=== PATIENT | female | born 1985 | race Caucasian/White ===

== ENCOUNTER → 2016-11-20 | Outpatient (CLI) | payer BC ==
[~2016-11-20] MED LIST: PRENTAB26 PO
[2016-11-20 12:23] LABS: URINE APPEARANCE CLEAR (CLEAR); URINE BILIRUBIN NEG (NEG); URINE COLOR YELLOW; URINE NITRITE NEG (NEG); URINE SPECIFIC GRAVITY 1.019 (1.000-1.030); UROBILINOGEN NEG (NEG)
[2016-11-20 12:29] LABS: MANUAL MICROSCOPIC REQUIRED? NO; REVIEW REQ? NO
== END | disposition home or self-care (01) ==
LOC: C.LABSPEC 11:39
PROVIDERS: ATTEND Obstetrics & Gynecology
DX: Z34.81 Encounter for supervision of other normal pregnancy, first trimester (principal)

== ENCOUNTER → 2016-11-21 | Outpatient (CLI) | payer BC ==
[2016-11-21 12:25] LABS: BASO % 0.5 %; BASO ABS # 0.03 K/uL (0-0.2); COMPLETE YES; EOS % 0.8 %; HEMATOCRIT 39.1 % (37-47); IG% 0.2 %; LYMPH % 30.9 %; LYMPH ABS # 1.99 K/uL (1.2-3.4); MEAN CELL VOLUME 83.4 fL (80-100); MEAN CORPUSCULAR HEMOGLOBIN 27.7 pg (25-34); MEAN CORPUSCULAR HGB CONC 33.2 g/dl (32-36); MEAN PLATELET VOLUME 9.4 fL (7.4-10.4); NEUT % 60.6 %; PLATELET COUNT 270 K/uL (130-400); RED BLOOD COUNT 4.69 M/uL (4.2-5.4); WHITE BLOOD COUNT 6.43 K/uL (4.8-10.8)
[2016-11-22 14:57] LABS: CHLAMYDIA TRACH RNA*** NOT DETECTED (NOT DETECTED); GC (NEIS GONORRHOEAE)RNA** NOT DETECTED (NOT DETECTED)
== END | disposition home or self-care (01) ==
LOC: C.LAB1850 09:54
PROVIDERS: ATTEND Obstetrics & Gynecology
DX: Z34.81 Encounter for supervision of other normal pregnancy, first trimester (principal); Z3A.00 Weeks of gestation of pregnancy not specified

== ENCOUNTER → 2017-01-17 | Outpatient (CLI) | payer BC ==
[2017-01-17 12:46] LABS: GTGD 50 Grams
== END | disposition home or self-care (01) ==
LOC: C.LAB1850 10:48
PROVIDERS: ATTEND Obstetrics & Gynecology
DX: Z34.82 Encounter for supervision of other normal pregnancy, second trimester (principal)

== ENCOUNTER → 2017-02-20 | Outpatient (CLI) | payer BC | END | disposition home or self-care (01) | LOC: C.LABSPEC 15:40 | PROVIDERS: ATTEND Obstetrics & Gynecology | DX: R10.2 Pelvic and perineal pain (principal) ==

== ENCOUNTER → 2017-04-09 | Outpatient (CLI) | payer BC ==
[2017-04-09 11:57] LABS: HEMATOCRIT 31.1 % (37-47); HEMOGLOBIN 10.7 g/dL (12.0-16.0)
== END | disposition home or self-care (01) ==
LOC: C.LAB1850 10:15
PROVIDERS: ATTEND Obstetrics & Gynecology
DX: Z34.83 Encounter for supervision of other normal pregnancy, third trimester (principal)

== ENCOUNTER → 2017-06-05 | Outpatient (CLI) | payer BC | END | disposition home or self-care (01) | LOC: C.LABSPEC 17:37 | PROVIDERS: ATTEND Obstetrics & Gynecology | DX: Z34.83 Encounter for supervision of other normal pregnancy, third trimester (principal) ==

== ENCOUNTER 2017-07-03 01:28 | Inpatient (IN) | payer BC ==
[~2017-07-03] VITALS: Ht 154.9 cm; Wt 68.0 kg
[2017-07-03] MEDS ORDERED: LACTATED RINGER'S 1000ML 1,000 ML IV PRN (02:11)
[2017-07-03] MEDS ORDERED: LACTATED RINGER'S 1000ML 1,000 ML IV SCH (02:11)
[2017-07-03] MEDS ORDERED: BUPIVACAINE 0.25% 30 ML VIAL ONE (02:27)
[2017-07-03] MEDS ORDERED: EpHEDrine SULFATE INJ 50 MG/ML AMP ONE (02:27)
[2017-07-03] MEDS ORDERED: FENTANYL CITRATE INJ 50 MCG/1 ML 2 ML VIAL ONE (02:27)
[2017-07-03] MEDS ORDERED: FENTANYL 2MCG/ML ROPIV 1.25MG/ML 100ML BAG ONE (02:28)
[2017-07-03 02:32] LABS: HEMATOCRIT 34.2 % (37-47); HEMOGLOBIN 11.9 g/dL (12.0-16.0); MEAN CELL VOLUME 84.2 fL (80-100); MEAN CORPUSCULAR HEMOGLOBIN 29.3 pg (25-34); MEAN CORPUSCULAR HGB CONC 34.8 g/dl (32-36); PLATELET COUNT 196 K/uL (130-400); RED CELL DISTRIBUTION WIDTH CV 13.4 % (11.5-14.5); RED CELL DISTRIBUTION WIDTH SD 41.1 fL (36.4-46.3); WHITE BLOOD COUNT 11.77 K/uL (4.8-10.8)
[2017-07-03 02:42] VITALS: Ht 154.9 cm; Wt 68.0 kg
[2017-07-03] MEDS ORDERED: OXYTOCIN 30 UNITS/500ML NSS IV ONE (03:30)
[2017-07-03] MEDS ORDERED: NALOXONE HCL INJ 1 MG in SODIUM CHLORIDE 0.9% 1000ML 1,000 ML IV PRN (03:31)
[2017-07-03] MEDS ORDERED: LACTATED RINGER'S 1000ML 500 ML IV PRN (03:31)
[2017-07-03] MEDS ORDERED: NALBUPHINE HCL INJ 10 MG/ML AMP IV PRN (03:45)
[2017-07-03] MEDS ORDERED: DiphenhydrAMINE HCL 50 MG/ML VIAL IV PRN (03:45)
[2017-07-03] MEDS ORDERED: ONDANSETRON INJ 2 MG/ML 2 ML VIAL IV PRN (03:45)
[2017-07-03] MEDS ORDERED: NALOXONE HCL INJ 0.4 MG/1 ML VIAL/CARP IV PRN (03:45)
[2017-07-03] MEDS ORDERED: EpHEDrine SULFATE INJ 50 MG/ML AMP IV PRN (03:45)
[2017-07-03] MEDS ORDERED: FENTANYL 2MCG/ML ROPIV 1.25MG/ML 100ML BAG EPI PRN (03:45)
[2017-07-03] MEDS ORDERED: FERR1TAB23 (04:53)
[2017-07-03] MEDS ORDERED: THIA50TA3 PO (04:54)
[2017-07-03] MEDS ORDERED: OMEG10007 PO (04:54)
[2017-07-03] MEDS ORDERED: SUPERCREAM 0.870 % 15GM JAR EXT PRN (06:00)
[2017-07-03] MEDS ORDERED: ACETAMINOPHEN 325 MG TAB PO PRN (06:00)
[2017-07-03] MEDS ORDERED: LANOLIN OINT EXT PRN (06:00)
[2017-07-03] MEDS ORDERED: BENZOCAINE 20% AER SPR 82.5 GM CAN EXT PRN (06:00)
[2017-07-03] MEDS ORDERED: OXYCODONE/ACETAMINOPHEN 5-325 TAB PO PRN (06:00)
[2017-07-03] MEDS ORDERED: MISOPROSTOL 200 MCG TAB PR ONE (06:00)
[2017-07-03] MEDS ORDERED: OXYTOCIN 30 UNITS/500ML NSS IV PRN (06:00)
[2017-07-03] MEDS ORDERED: HYDROCORTISONE ACETATE 25 MG SUPP PR PRN (06:00)
[2017-07-03] MEDS ORDERED: DIPHTHERIA/TETANUS/PERTUSSIS 0.5 ML SYR/VIAL IM. ONE (06:00)
--- NOTE | 2017-07-03 06:25 | DELIVERY SUMMARY ---
DATE OF OPERATION: 07/03/2017 The patient dilated to complete and pushed to deliver a viable female infant, Apgars 10 and 10 via over small second-degree perineal laceration. Mouth and nose bulb suctioned at the perineum. Shoulders and body delivered with ease. The infant was vigorous and crying at . Cord is clamped at 30 seconds of life and then to maternal abdomen, where the cord was then doubly clamped and cut. The placenta was delivered spontaneously and intact, 3-vessel cord. Hemostasis not achieved with dilute Pitocin and uterine massage. Since hemostasis initially inadequate, 800 mcg of rectal Cytotec was administered. Hemostasis improved with medications, bimanual and fundal massage. The bladder was drained under sterile conditions for approximately 300 mL. Ultimately, the estimated blood loss was 500 mL. Cervix and sulci intact. Laceration was repaired in a usual fashion with 3-0 Vicryl. Mother and baby stable in recovery. I attest to the content of the Intraoperative Record and any orders documented therein. Any exceptions are noted below. MTDD
[2017-07-03] MEDS ORDERED: OXYTOCIN INJ 20 UNITS in LACTATED RINGER'S 1000ML 1,000 ML IV SCH (06:30)
--- NOTE | 2017-07-03 08:15 | Anesthesia Procedure Note ---
Anesthesia Epidural Removal Nt Date & Time July 03, 2017 at 08:15 Vital Signs Pain Intensity: 0.0 Notes Mental Status: alert / awake / arousable, participated in evaluation Nausea / Vomiting: adequately controlled Pain: adequately controlled Airway Patency, RR, SpO2: stable & adequate BP & HR: stable & adequate Hydration State: stable & adequate Neuraxial Anesthesia: was administered Anesthetic Complications: no major complications apparent, pt satisfied with anesthetic care Epidural: removed without complications, with tip intact
[2017-07-03 08:45] VITALS: BP 113/71; PULSE 87; TEMP 36.8; O2SAT 97
[2017-07-03] MEDS: DOCUSATE SODIUM 100 MG CAP PO SCH ×2 (09:06→20:50)
[2017-07-03] MEDS: IBUPROFEN 600 MG TAB PO PRN ×3 (09:07→20:50)
[2017-07-03 09:45] VITALS: BP 122/77; PULSE 84; TEMP 37.1; O2SAT 99
[2017-07-03 10:45] VITALS: BP 115/70; PULSE 81; TEMP 37; O2SAT 99
[2017-07-03 12:00] VITALS: BP 112/71; PULSE 76; TEMP 37; O2SAT 97
[2017-07-03 15:55] VITALS: BP 120/73; PULSE 65; TEMP 37
[2017-07-03 20:30] VITALS: BP 116/71; PULSE 75; TEMP 37.1
[2017-07-04 00:10] VITALS: BP 113/72; PULSE 85; TEMP 36.9; O2SAT 98
[2017-07-04 04:15] VITALS: BP 107/65; PULSE 85; TEMP 37; O2SAT 98
[2017-07-04] MEDS: IBUPROFEN 600 MG TAB PO PRN (05:55)
--- NOTE | 2017-07-04 06:40 | Progress Note ---
Subjective July 04, 2017. Subjective conversation w/ patient Ambulation: ambulating normally Voiding: no voiding problems Diet Tolerance: Regular Diet Lochia: Moderate Feeding Type: Breast Feeding Pain: abdominal cramping with & discomfort in perineal area Review of Systems Constitutional: No fever, No chills Respiratory: No shortness of breath Cardiac: No chest pain Abdomen: No nausea, No vomiting Objective Vital Signs Date Time Temp Pulse Resp B/P (MAP) Pulse Ox O2 Delivery O2 Flow Rate FiO2 07/04/17 04:15 37.0 85 16 107/65 (79) 98 Room Air 07/04/17 00:10 36.9 85 16 113/72 (86) 98 Room Air 07/04/17 00:10 Room Air 07/03/17 20:30 37.1 75 20 116/71 (86) Room Air 07/03/17 15:55 Room Air 07/03/17 15:55 37.0 65 20 120/73 (89) Room Air 07/03/17 12:00 37.0 76 16 112/71 (85) 97 Room Air 07/03/17 10:45 37.0 81 18 115/70 (85) 99 Room Air 07/03/17 09:45 37.1 84 18 122/77 (92) 99 Room Air 07/03/17 08:45 97 Room Air 07/03/17 08:45 36.8 87 18 113/71 (85) 97 Room Air Physical Exam General Appearance: WELL-APPEARING, WD/WN, NO APPARENT DISTRESS Abdomen: soft Fundus: Firm, Non-Tender, Relation to Umbilicus (at u) Extremities: no pedal edema, no calf tenderness Laboratory Results Last 24 Hours Test 07/04/17 04:44 Assessment and Plan Post- Day#: 1 Continue Routine Care: 31F s/p NVD day 1 - A+, Rubella Immune, GBS -ve - pt doing very well clinically - Vital signs reviewed and WNL - Encourage ambulation, monitor and control pain with Motrin PRN - Encourage breast feeding - Pt could be discharged today provided baby is ready for d/c Resident Physician Supervision Note: I was present with Dr. Foster during the history and exam. I discussed the case with the resident and agree with the findings and plan as documented in the note. Any exceptions or clarifications are listed here: PPD#1 doing well, anticipate DC home Documented By: Letty Raphael Resident Tracking Resident Involvement: Resident Care Provided Care Provided: OB Delivery
--- NOTE | 2017-07-04 06:57 | Discharge Instructions ---
Discharge Instructions Date of Service July 04, 2017. Admission Reason for Admission: LABOR Discharge Discharge Diagnosis / Problem: Vaginal Delivery Discharge Goals Goal(s): Routine recovery after delivery Medications Continue Dispensed Medications: supercream, dermaplast, tucks, lansinoh Activity Recommendations Activity Limitations: per Instructions/Follow-up section . Instructions / Follow-Up Instructions / Follow-Up ACTIVITY RECOMMENDATIONS: * Gradual return to full activity over the next 2-3 weeks. * No lifting - nothing heavier than baby over the next 2-3 weeks. * Do not engage in vigorous exercise, sexual activity or sports until cleared by your physician. * Do not drive or operate any motorized equipment until cleared by your physician. * You may shower/bathe daily. MEDICATIONS: For discomfort or pain, you may use Acetaminophen (Tylenol), Ibuprofen (Advil), or Naproxen (Aleve) following the package directions. For constipation you may use Colace following the package directions. BREAST CARE: If you are not breast feeding: * Wear a supportive bra 24 hours a day for one to two weeks. * Avoid stimulating your breasts and nipples as much as possible during the first few weeks after delivery. * When taking a shower, have the warm water hit your back, not breasts. * When your breasts feel full, apply ice packs. Usually three to four times a day helps ease the discomfort. * Take a mild pain medication (Tylenol / Motrin) when you are uncomfortable. If breast feeding: * Use breast milk to lubricate nipples. Lansinoh cream may be used for sore nipples. You do not need to remove cream prior to breast feeding. If using a different brand of cream, check the label for directions regarding removal of cream prior to nursing. * Wear a supportive bra. * If having problems with breasts or breast feeding, call a hr consultant or your health care provider. EPISIOTOMY CARE: After delivery, if you have an episiotomy (stitches), the following steps will ease discomfort and aid healing. * For the first 24 hours after delivery, place ice packs next to your episiotomy to help reduce swelling. * After the first 24 hour-period, sitz baths, either portable or in the tub, are suggested. A shower with a shower arm sprayed over the episiotomy may be comforting. * Yulisa care should be done after each voiding and bowel movement. Squirt warm water from a plastic bottle over the perineum (region of the body between the anus and urinary opening) and pat dry. * Use Dermoplast to ease discomfort. Shake container. [place] directly over the episiotomy. Place a Tucks on a clean sanitary pad next to your episiotomy. SPECIAL CARE INSTRUCTIONS: When you are discharged from the hospital, it is important for you to follow the instructions listed below: * During the first week at home, you should be able to care for yourself and your baby. In addition, the usual light household activities are encouraged. * Limit your activities to the way you feel. Do not try to clean the house or move furniture. Be sensible. * If you actively engage in sports and have done so up until the time of your delivery, you may resume these activities as soon as you feel able. This may take up to one month or even longer. Use good judgment. * Continue to take your vitamins for at least six weeks after the of your baby. * Your diet need not be limited unless you were on a special diet before your delivery. Breast-feeding mothers need around 2500 calories per day and at least 64-80 ounces of fluid per day (8 to 10 glasses). * You should eat foods from the four major food groups. Crash diets or fad diets are to be avoided. Eating lean meats, fresh fruits and vegetables, low-fat dairy products, high fiber foods and a regular exercise program, will help you get back to your pre- weight without putting your health at risk. * Constipation is sometimes a problem after delivery. Take a mild laxative as needed. If breast feeding, Milk of Magnesia is acceptable to use. You may use a suppository or Fleets enema if no episiotomy. * A daily shower or tub bath is suggested. Be sure to thoroughly and gently dry the perineum. * A bloody vaginal discharge will usually continue until around four weeks post . A small amount of bleeding may continue for as long as six weeks. Vaginal discharge changes from the bright red bleeding after delivery to pink then brownish and finally yellowish-pink before becoming white and disappearing. * Bleeding may increase with activity. Your first period may come in 4-8 weeks. If you are breast feeding, your period may be delayed even longer. * [place] (sex) can begin whenever both you and your partner feel comfortable and do not have any form of genital infection. It is recommended that you wait at least six weeks for internal and external healing to occur. If you have questions, please talk to your health care practitioner. A condom should be used to prevent infection and . * Foreplay, gentle intercourse and lubrication is very important the first several times to prevent pain. A water-based lubricant such as K-Y jelly or Astroglide may be used. * If you have RH negative blood and your baby is RH positive, you will receive RHOGAM by injection prior to discharge. The nurse will give you a card to keep with you that has the date and place that you received RHOGAM after delivery. * During your care, you had a Rubella screen done to check for the presence of rubella antibodies in your blood. If your test was negative, you will receive a Rubella vaccine prior to discharge. This vaccine may cause a fever, soreness at the injection site and flu-like symptoms. If these symptoms persist, notify your health care practitioner. is not advised for one month after a Rubella vaccine. * Verbalizes understanding of car seat law as reviewed with patient nursing. * Car Seat hand-out given and reviewed with patient by nursing. * Shaken baby information reviewed with patient by nursing. Call you doctor if: * Heavy bleeding (saturating several pads an hour) or passing clots the size of your fist. * A fever >101 degrees F (38.3 degrees C) on two occasions four hours apart and /or chills. * Unusual pain in the pelvic or vaginal areas. * "Baby Blues" lasting longer than two weeks. If you have any questions or concerns, call your health care practitioner at . FOLLOW UP VISIT: * Please call the office at to schedule a 6 week examination. It is important you keep this appointment. It is important for you to make arrangements for either yearly or twice yearly check-ups thereafter. Current Hospital Diet Patient's current hospital diet: Regular OB Diet Discharge Diet Recommended Diet: Regular Diet Pending Studies Studies pending at discharge: no Medical Emergencies . Who to Call and When: Medical Emergencies: If at any time you feel your situation is an emergency, please call 201 immediately. . Non-Emergent Contact Non-Emergency issues call your: Primary Care Provider . . "Provider Documentation" section prepared by Martha Foster. .
[2017-07-04 07:36] LABS: HEMATOCRIT 30.9 % (37-47); HEMOGLOBIN 10.3 g/dL (12.0-16.0)
[2017-07-04 07:40] VITALS: BP 116/76; PULSE 80; TEMP 36.7; O2SAT 99
[2017-07-04] MEDS: DOCUSATE SODIUM 100 MG CAP PO SCH (09:12)
[2017-07-04 14:29] VITALS: BP_DIAS 76; PULSE 80; TEMP 36.7
== END 2017-07-04 14:40 | disposition home or self-care (01) | DRG 775 ==
LOC: C.LD 01:28 → C.OPB 01:28 → C.LD 02:13 → C.OBG 09:05
PROVIDERS: ADMIT Obstetrics & Gynecology; ATTEND Obstetrics & Gynecology
PROC: 10E0XZZ Delivery of Products of Conception, External Approach (ICD-10-PCS; principal; 2017-07-03)
PROC: 0KQM0ZZ Repair Perineum Muscle, Open Approach (ICD-10-PCS; principal; 2017-07-03)
DX: O70.1 Second degree perineal laceration during delivery (principal); Z37.0 Single live birth; Z3A.40 40 weeks gestation of pregnancy

== ENCOUNTER 2019-07-30 14:08 | Inpatient (IN) ==
[2019-07-30] MEDS ORDERED: OXYTOCIN 30 UNITS/500 ML BAG IV PRN ×2 (15:03→20:23)
[2019-07-30] MEDS: LACTATED RINGER'S 1,000 ML IV PRN ×2 (15:15→16:08)
--- NOTE | 2019-07-30 15:17 | History & Physical Report ---
Date of Service July 30, 2019 Assessment & Plan (1) : Svetlana Quiñonez is a 33 y/o female , at 41weeks; presenting for labor check - based off Dr. Gold's exam, patient is in first stage of labor - continue heart monitoring and tocometry - continue routine care - patient desires epidural; anesthesiology consulted - consider addition of Pitocin for labor augmentation History of Present Illness Primary Care Provider: Donovan Britton MD Svetlana Quiñonez is a 33 y/o female , at 41weeks; presenting for labor check; no complications during this started feeling contractions following appointment this morning with a small amount of painless vaginal blood loss; good movement; no fluid loss; Labs: (11/05/18) Blood type: A+ Antibody screen: negative H.5 Hct: 37.4 WBC: 6.65 Plt: 241 Rubella: Immune VDRL/RPR: nonreactive Gonorrhea: not detected Chlamydia: not detected HIV: negative HbSAg: negative GBS negative passed Glucose tolerance x2 Allergies Allergy/AdvReac Type Severity Reaction Status Date / Time No Known Allergies Allergy Verified 07/30/19 08:24 Home Medications Home Medications Medication Instructions Recorded Confirmed Type PNV cmb#95-ferrous fumarate-FA 1 tab PO DAILY 07/30/19 07/30/19 History [] Past Med/Surg History Family History (Updated 12/09/18 @ 10:06 by Carmen Silva) Mother Ovarian cyst Grandmother (Paternal) Breast cancer Aunt Breast cancer Aunt Bladder cancer Father Drinking problem Social History (Updated 12/09/18 @ 10:07 by Carmen Silva) Preferred Language: Moldovan Communication Ability: Effective Print Line Supervisor Required: No Beliefs That Will Affect Care: None marital status: marital status details: Geovanni Quiñonez (32) [phone] Current Living Situation: Spouse Current Living Situation Comment: dog current occupational status: employed 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, 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 Feels Safe at Home: Yes Safety Concerns: Feels Safe At This Time Smoking Status: Never smoker Hx Alcohol Use: No Hx Substance Use: No Review of Systems Review of Systems: Constitutional: denies fever; chills; sweats; headache Respiratory: denies shortness of breath, difficulty breathing Cardiac: denies chest pain; palpitations; chest pressure Breast: denies breast pain : denies dysuria Physical Exam Physical Exam: General: alert; oriented; no acute distress Cardiac: RRR; no m/g/r Respiratory: CTAB a/p; no wheezes/rales/rhonchi; no increased work of breathing; symmetrical chest rise; no respiratory distress Abdomen: soft; NT/ND; bowel sounds positive Lower extrem: no lower extremity edema or swelling; no deep calf pain; Melissa's sign negative b/l Genitourinary: Manual OB Exam: + cervical dilation 5 cm, + cervical effacement 80%, + station (posterior) -1 and + amniotic fluid OB Exam Monitor Tracing: + external FHT monitor used, + external uterine monitor used, + category I and + normal FHT variability cervical exam deferred to Dr. Gold Results & Data Results & Data ([facility]) Vital Signs (Past 12 Hours) Vital Signs Temp Pulse Resp BP 07/30/19 14:19 37.0 C 109 H 18 119/67 07/30/19 14:14 37.0 C 109 H 20 119/67 Supervising Physician Co-Signing Physician Notes Resident Physician Supervision Note: I interviewed and examined the patient. Discussed with Dr. Moss and agree with findings and plan as documented in the note. Any exceptions or clarifications are listed here: [None] Documented By: Loida Martinez MD, FACOG Resident Activity Tracking Resident Involvement: Resident Care Provided Care Provided: OB Delivery
[2019-07-30] MEDS ORDERED: ePHEDrine sulfate 50 MG/ML AMP ONE (15:20)
[2019-07-30] MEDS ORDERED: fentaNYL citrate 100 MCG/2 ML VIAL ONE (15:20)
[2019-07-30] MEDS ORDERED: BUPIVACAINE 0.25% 30 ML VIAL ONE (15:20)
[2019-07-30 15:21] LABS: Hematocrit (blood only) 36.8 % (37-47); Hemoglobin 12.3 g/dL (12.0-16.0); Mean Corpuscular Hemoglobin 29.1 pg (25-34); Mean Corpuscular Volume 87.2 fL (80-100); Mean Platelet Volume 9.5 fL (7.4-10.4); Platelet Count 217 K/uL (130-400); RDW Coefficient of Variation 13.9 % (11.5-14.5); RDW Standard Deviation 43.9 fL (36.4-46.3); Red Blood Count 4.22 M/uL (4.2-5.4)
[2019-07-30] MEDS ORDERED: fentaNYL 2MCG/ML ROPIV 1.25MG/ML 100 ML BAG EPI ONE (15:21)
[2019-07-30 15:41] LABS: Mean Corpuscular Hgb Conc 33.4 g/dL (32-36)
--- NOTE | 2019-07-30 16:23 | Anesthesiology Consultation ---
Date of Service July 30, 2019 Assessment & Plan Chart Review Chart Review: Acceptable Risk for Labor Epidural Consults Requested none Proposed Anesthesia Risk / Benefits Reviewed With: PT / POA / Parent / Guardian, Accepts Plan and Informed Consent Obtained History Height/Weight Height: 5 ft 1 in Weight: 70.76 kg Allergies Allergy/AdvReac Type Severity Reaction Status Date / Time No Known Allergies Allergy Verified 07/30/19 08:24 Medications Home Medications Medication Instructions Recorded Confirmed Last Taken PNV cmb#95-ferrous fumarate-FA 1 tab PO DAILY 07/30/19 07/30/19 07/29/19 21:00 [] Active Medications Generic Name Dose Route Start Last Admin Trade Name Freq PRN Reason Stop Dose Admin Lactated Ringer's 1,000 mls @ 125 mls/hr 07/30/19 15:03 07/30/19 16:08 Lr IV 08/01/19 15:02 125 mls/hr .Q8H PRN Administration L&D Protocol Protocol Past Medical History Medical History Nipple lesion Varicella vaccine Yeast infection Past Family History Family History Mother Ovarian cyst Grandmother (Paternal) Breast cancer Aunt Breast cancer Aunt Bladder cancer Father Drinking problem Past Surgical History Surgical History H/O knee surgery S/P wisdom tooth extraction [place] teeth extracted Social History Smoking Status: Never smoker Hx Alcohol Use: No Hx Substance Use: No Physical Exam Vital Signs Last Vital Signs Temp 37.0 C 07/30/19 14:19 Pulse 88 07/30/19 16:21 Resp 18 07/30/19 14:19 BP 102/60 07/30/19 16:21 Pulse Ox 98 07/30/19 16:20 Testing Laboratory Results 07/30/19 15:11
[2019-07-30] MEDS ORDERED: NALOXONE HCL 1 MG in SODIUM CHLORIDE 0.9% 1000ML 1,000 ML IV PRN (16:25)
[2019-07-30] MEDS ORDERED: ePHEDrine sulfate 50 MG/ML AMP IV PRN (16:25)
[2019-07-30] MEDS ORDERED: fentaNYL 2MCG/ML ROPIV 1.25MG/ML 100 ML BAG EPI PRN (16:25)
[2019-07-30] MEDS ORDERED: NALBUPHINE HCL INJ 10 MG/ML AMP IV PRN (16:25)
[2019-07-30] MEDS ORDERED: DiphenhydrAMINE HCL 50 MG/ML VIAL IV PRN (16:25)
[2019-07-30] MEDS ORDERED: NALOXONE HCL 0.4 MG/1 ML VIAL/CARP IV PRN (16:25)
[2019-07-30] MEDS ORDERED: HYDROCORTISONE ACETATE 25 MG SUPP PR PRN (20:23)
[2019-07-30] MEDS ORDERED: BENZOCAINE 20% AER SPR 82.5 GM CAN EXT PRN (20:23)
[2019-07-30] MEDS ORDERED: SUPERCREAM 0.870% 15 GM JAR EXT PRN (20:23)
[2019-07-30] MEDS ORDERED: OXYCODONE/ACETAMINOPHEN 5mg/325mg TAB PO PRN (20:23)
[2019-07-30] MEDS ORDERED: DIPHTHERIA/TETANUS/PERTUSSIS 0.5 ML SYR/VIAL IM ONE (20:23)
[2019-07-30] MEDS ORDERED: bisacodyL 10 MG SUPP PR PRN (20:23)
--- NOTE | 2019-07-30 20:44 | Anesthesia Procedure Note ---
Date of Service July 30, 2019 Anesthesia Post Epidural Note Vital Signs Vital Signs: Temp Pulse Resp BP Pulse Ox 36.8 C 84 18 125/59 L 100 07/30/19 19:10 07/30/19 20:35 07/30/19 19:10 07/30/19 20:35 07/30/19 20:20 Pain Intensity Left Abdomen: Pain Intensity: 9 Notes Mental Status: alert / awake / arousable Nausea / Vomiting: adequately controlled Pain: adequately controlled Airway Patency, RR, SpO2: stable & adequate BP & HR: stable & adequate Hydration State: stable & adequate Neuraxial Anesthesia: was administered and sensory block is resolving Anesthetic Complications: no major complications apparent and Pt Satisfied with anesthetic care Epidural: Removed without complications and With tip intact
[2019-07-31] MEDS: IBUPROFEN 600 MG TAB PO PRN ×5 (00:17→18:00)
--- NOTE | 2019-07-31 01:03 | Delivery Summary ---
DATE OF OPERATION: 07/30/2019 The patient is a 33-year-old 3, para 2-0-0-2, white female who presents at 41 weeks in active labor. She had had an exam earlier in the day and began to contract spontaneously as a result. She presented to labor and delivery at 5 cm dilated. She received epidural analgesia and membranes were then ruptured after she was comfortable. She progressed to full dilation and then pushed effectively over intact perineum for delivery of a viable male infant. Mouth and nasopharynx were suctioned after the was placed on the mother's abdomen for further drying and attention. The infant was moving all 4 limbs and was crying vigorously. The placenta was expressed intact with a 3-vessel cord. A second-degree perineal laceration was repaired with 3-0 chromic in the usual fashion. Estimated blood loss was 250 mL. Her bladder was emptied by straight catheterization for 300 mL of clear urine after delivery. bleeding was controlled with dilute Pitocin. Mother and infant were doing well after delivery. I attest to the content of the Intraoperative Record and any orders documented therein. Any exception s are noted below.
--- NOTE | 2019-07-31 05:42 | Obstetrical Progress Note ---
Date of Service <Pedro Moss MD - Last Filed: 07/31/19 07:12> July 31, 2019 Assessment & Plan <Pedro Moss MD - Last Filed: 07/31/19 07:12> (1) : PPD#1: - doing well, ambulating well, tolerating oral intake - continue routine care - after discharge will have 6 week follow-up with Dr. Alla Gaytan <Pedro Moss MD - Last Filed: 07/31/19 07:12> Svetlana Quiñonez is a 33 y/o female ; PPD #1 following spontaneous vaginal delivery at 41 weeks; doing well this morning; minimal abdominal cramping/pain; voiding well; tolerating meals overnight; and able to ambulate some; some persistent spotting with intermittent improvement this morning. Review of Systems Constitutional: denies fever; chills; sweats; headache Respiratory: denies shortness of breath, difficulty breathing Cardiac: denies chest pain; palpitations; chest pressure Breast: denies breast pain : denies dysuria Physical Exam <Pedro Moss MD - Last Filed: 07/31/19 07:12> General: alert; oriented; no acute distress Cardiac: RRR; no m/g/r Respiratory: CTAB a/p; no wheezes/rales/rhonchi; no increased work of breathing; symmetrical chest rise; no respiratory distress Abdomen: soft; NT/ND; bowel sounds positive Uterus: uterine fundus firm; palpable 2cm below umbilicus Lower extrem: no lower extremity edema or swelling; no deep calf pain; Melissa's sign negative b/l Results & Data <Pedro Moss MD - Last Filed: 07/31/19 07:12> Vital Signs (Past 12 Hours) Vital Signs Temp Pulse Pulse Resp BP BP Pulse Ox 07/31/19 04:10 36.6 C 80 18 110/68 07/30/19 23:05 36.7 C 91 H 18 122/72 07/30/19 22:20 114 H 130/71 07/30/19 22:05 87 116/64 07/30/19 21:50 89 118/58 L 07/30/19 21:35 90 115/58 L 07/30/19 21:21 96 H 143/79 H 07/30/19 20:50 81 126/58 L 07/30/19 20:35 84 125/59 L 07/30/19 20:20 98 H 145/63 H 100 07/30/19 20:15 111 H 98 07/30/19 20:10 111 H 98 07/30/19 20:05 106 H 97 07/30/19 20:00 155 H 97 07/30/19 19:55 120 H 97 07/30/19 19:54 141 H 160/122 H 07/30/19 19:50 124 H 99 07/30/19 19:45 114 H 91 07/30/19 19:40 142 H 98 07/30/19 19:35 98 H 99 07/30/19 19:30 89 100 07/30/19 19:25 90 116/70 99 07/30/19 19:20 80 100 07/30/19 19:15 82 100 07/30/19 19:10 36.8 C 77 18 116/63 99 07/30/19 19:05 93 H 100 07/30/19 19:00 78 100 07/30/19 18:55 81 99 07/30/19 18:54 86 20 134/74 07/30/19 18:50 73 100 07/30/19 18:45 78 100 07/30/19 18:40 84 100 07/30/19 18:39 77 120/74 07/30/19 18:35 77 100 07/30/19 18:30 76 99 07/30/19 18:25 82 100 07/30/19 18:24 78 113/70 07/30/19 18:20 82 100 07/30/19 18:15 87 100 07/30/19 18:10 79 100 07/30/19 18:09 87 20 104/75 07/30/19 18:05 84 100 07/30/19 18:00 80 100 20 17:55 77 100 07/30/19 17:54 75 109/74 07/30/19 17:50 91 H 100 07/30/19 17:45 89 100 Laboratory Results 07/31/19 07/30/19 Range/Units 05:37 15:11 WBC 15.57 H 11.40 H (4.8-10.8) K/uL RBC 3.68 L 4.22 (4.2-5.4) M/uL Hgb 10.5 L 12.3 (12.0-16.0) g/dL Hct 31.9 L 36.8 L (37-47) % MCV 86.7 87.2 (80-100) fL MCH 28.5 29.1 (25-34) pg MCHC 32.9 33.4 (32-36) g/dL RDW Std Deviation 43.4 43.9 (36.4-46.3) fL RDW Coeff of Sandhya 13.8 13.9 (11.5-14.5) % Plt Count 188 217 (130-400) K/uL MPV 9.2 9.5 (7.4-10.4) fL Medications Administered Current Inpatient Medications Acetaminophen (Tylenol) 650 mg PO Q6H PRN PRN Reason: Pain/HAM/Fever Stop: 08/29/19 20:22 Last Admin: 07/31/19 06:55 Dose: 650 mg Documented by: Benzocaine (Dermoplast Pain Relieving [place]) 1 appln EXT PRN PRN PRN Reason: Perineal Discomfort Stop: 08/29/19 20:22 Last Admin: 07/31/19 00:17 Dose: 82.5 appln Documented by: Bisacodyl (Dulcolax) 5 mg PO [facility] Stop: 07/31/19 20:01 Bisacodyl (Dulcolax) 10 mg NC DAILY PRN PRN Reason: No BM on 2nd post- day Stop: 08/29/19 20:22 Cocaine HCl (Supercream 0.870%) 1 gm EXT BID PRN PRN Reason: Hemorrhoidal Inflammation Stop: 08/13/19 20:22 Last Admin: 07/31/19 00:18 Dose: 1 gm Documented by: Diphenhydramine HCl (Benadryl) 25 mg IV Q6H PRN PRN Reason: Itching Stop: 07/31/19 16:24 Docusate Sodium (Colace) 100 mg PO DAILY@ [facility] Stop: 08/29/19 20:59 Ephedrine Sulfate (Ephedrine Sulfate) 10 mg IV Q5M PRN PRN Reason: Hypotension Stop: 07/31/19 16:24 Hydrocortisone (Anusol Hc) 25 mg NC BID PRN PRN Reason: Hemorrhoidal Inflammation Stop: 08/29/19 20:22 Lactated Ringer's (Lr) 1,000 mls @ 125 mls/hr IV .Q8H PRN; Protocol PRN Reason: L&D Protocol Stop: 08/01/19 15:02 Last Infusion: 07/30/19 19:08 Dose: 125 mls/hr Documented by: Oxytocin (Pitocin) 30 units in 500 mls @ 999 mls/hr IV .Q31M PRN; Protocol PRN Reason: Bleeding Control Stop: 08/29/19 15:02 Last Titration: 07/30/19 21:30 Dose: Infused Documented by: Naloxone HCl 1 mg/ Sodium (Chloride) 1,002.5 mls @ 50 mls/hr IV .Q20H3M PRN PRN Reason: itching or nausea Stop: 07/31/19 16:24 Oxytocin (Pitocin) 30 units in 500 mls @ 333.333 mls/hr IV .Q1H30M PRN; Protocol PRN Reason: Bleeding Control Stop: 08/29/19 20:22 Ibuprofen (Motrin) 600 mg PO Q4H PRN PRN Reason: Pain/HAM/Cramping/Fever Stop: 08/29/19 20:22 Last Admin: 07/31/19 04:13 Dose: 600 mg Documented by: Nalbuphine HCl (Nubain) 5 mg IV Q10M PRN PRN Reason: itching or nausea Stop: 07/31/19 16:24 Naloxone HCl (Narcan) 0.1 mg IV UD PRN PRN Reason: Respiratory Depression Stop: 07/31/19 16:24 Oxycodone/Acetaminophen (Percocet 5mg/325mg) 1 tab PO Q4H PRN PRN Reason: Pain not relieved by... Stop: 08/13/19 20:22 Prenat Multivit/[place]/Iron/Folic Ac ( Vitamin) 1 tab PO DAILY@08 ANGÉLICA Stop: 08/30/19 07:59 Ropivacaine (Epidural (L&D)) 100 ml EPI PRN PRN; Protocol PRN Reason: Pain R/T Labor Stop: 07/31/19 16:24 <Loida Martinez MD, FACOG - Last Filed: 07/31/19 07:35> Co-Signing Physician Notes Resident Physician Supervision Note: I interviewed and examined the patient. Discussed with Dr. Moss and agree with findings and plan as documented in the note. Any exceptions or clarifications are listed here: [None] Documented By: Loida Martinez MD, FACOG Resident Activity Tracking <Pedro Moss MD - Last Filed: 07/31/19 07:12> Resident Involvement: Resident Care Provided Care Provided: OB Delivery
[2019-07-31 05:52] LABS: Hematocrit (blood only) 31.9 % (37-47); Hemoglobin 10.5 g/dL (12.0-16.0); Mean Corpuscular Hemoglobin 28.5 pg (25-34); Mean Corpuscular Hgb Conc 32.9 g/dL (32-36); Mean Corpuscular Volume 86.7 fL (80-100); Mean Platelet Volume 9.2 fL (7.4-10.4); Platelet Count 188 K/uL (130-400); RDW Coefficient of Variation 13.8 % (11.5-14.5); RDW Standard Deviation 43.4 fL (36.4-46.3); Red Blood Count 3.68 M/uL (4.2-5.4); White Blood Count 15.57 K/uL (4.8-10.8)
[2019-07-31] MEDS: ACETAMINOPHEN 325 MG TAB PO PRN ×3 (06:55→20:06)
[2019-07-31] MEDS ORDERED: PRENATAL VITAMIN 1 TAB PO SCH (08:00)
[2019-07-31] MEDS: DOCUSATE SODIUM 100 MG CAP PO SCH ×2 (08:22→20:05)
[2019-07-31] MEDS ORDERED: bisacodyL 5 MG TABEC PO SCH (20:00)
== END 2019-07-31 22:10 | disposition home or self-care (01) | DRG 807 ==
LOC: OPB 14:08 → 4S1 14:12 → 4S2 22:47